=== PATIENT | male | born 1960 | race African-American/Black ===

== ENCOUNTER 2020-11-12 09:28 | Outpatient (CLI) | payer OTHER ==
[~2020-11-12] VITALS: Ht 165.1 cm; Wt 70.3 kg
== END 2020-11-12 19:17 | disposition home or self-care (01) ==
LOC: INF 09:28
PROVIDERS: ATTEND Family Medicine
DX: Z23 Encounter for immunization (principal); U07.1 COVID-19
CPT/HCPCS: 96365; Q0239; Q0245